=== PATIENT | female | born 1980 ===

== ENCOUNTER 2024-08-14 08:22 | Outpatient (REF) | payer SELFPAY ==
--- NOTE | 2024-08-14 10:24 | MHC.AU.HA3 ---
Hearing Instrument Follow-Up- Binaural Date of Visit: 08/14/24 Right Ear: Roger, Model, Color, Serial Number: Otaviva XCeed 2 UP MEGAN ag S#[id number] Single Pointed Operator Repair Warranty: 05/21/2027 Single Pointed Operator Loss and Damage Warranty: 05/21/2027 [facility] Service Plan: 07/24/25 Battery Size: 675 Earmold/Dome/CShell/SlimTip:microsonic silicone shell rainbow (turqoise, purple, pink) with glitter Dispensed By: [facility] Date of Fittin07/24/24 Left Ear: Roger, Model, Color, Serial Number: Oticon XCeed 2 UP MEGAN ag S#[id number] Single Pointed Operator Repair Warranty: 05/21/2027 Single Pointed Operator Loss and Damage Warranty: 05/21/2027 [facility] Service Plan: 07/24/25 Battery Size: 675 Earmold/Dome/CShell/SlimTip: microsonic silicone shell rainbow (turqoise, purple, pink) with glitter Dispensed By: [facility] Date of Fittin07/24/24 Follow-Up Summary: Jennie reports some issues with the hearing aids. She notes that some sounds feel too soft and some feel too loud. Notes trouble hearing TV. Could not specify particularly bothersome sounds but notes she can feel overwhelmed and fatigued by the hearing aids. Notes getting headaches. Jennie reports inconsistent wear, noting she doesn't really wear them at home. Data logging shows 1 hour average wear. Set to adaptation 2 with gradual increase. Increased noise management settings. Discussed importance of consistent wear to adjust to new amplification. Inquired as to whether Jennie has seen an ENT yet or not as previously discussed at evaluation. She reports she has not. She will request a referral from PCP. Recommendations: Recommendations: An additional follow-up was scheduled to monitor progress. Diagnosis Code(s): Primary Diagnosis: H90.6 Mixed Hearing Loss, Bilateral Signature: Provider: Tavia Carolina, [facility]
== END 2024-08-14 08:23 | disposition home or self-care (01) ==
LOC: HO.HAP 08:22
PROVIDERS: PCP Internal Medicine; Visit Provider Internal Medicine
DX: Z13.89 Encounter for screening for other disorder (principal)

== ENCOUNTER 2024-12-03 09:54 | Outpatient (REF) | payer SELFPAY ==
--- NOTE | 2024-12-03 13:33 | MHC.AU.HA3 ---
Hearing Instrument Follow-Up- Binaural Date of Visit: 12/03/24 Right Ear: Make, Model, Color, Serial Number: Otaviva ROSENeed 2 UP MEGAN ag S#[id number] Bed Spring Maker Repair Warranty: 05/21/2027 Bed Spring Maker Loss and Damage Warranty: 05/21/2027 [facility] Service Plan: 07/24/25 Battery Size: 675 Earmold/Dome/CShell/SlimTip:microsonic silicone shell rainbow (turqoise, purple, pink) with glitter Dispensed By: [facility] Date of Fittin07/24/24 Left Ear: Make, Model, Color, Serial Number: Oticon XCeed 2 UP MEGAN ag S#[id number] Bed Spring Maker Repair Warranty: 05/21/2027 Bed Spring Maker Loss and Damage Warranty: 05/21/2027 [facility] Service Plan: 07/24/25 Battery Size: 675 Earmold/Dome/CShell/SlimTip: microsonic silicone shell rainbow (turqoise, purple, pink) with glitter Dispensed By: [facility] Date of Fittin07/24/24 Follow-Up Summary: Dispensed remake left earmold. Jennie reports it feels comfortable in office. She has been wearing her old earmold on her left aid in the meantime. Reports she has gotten used to the new hearing aids over time and more comfortable with hearing more. Reports she has increased the amount of time she wears them. No adjustments needed today. Recommendations: Recommendations: Hearing instrument follow-up or maintenance as needed. Diagnosis Code(s): Primary Diagnosis: H90.6 Mixed Hearing Loss, Bilateral Signature: Provider: Tavia Carolina, [facility]
== END 2024-12-03 09:55 | disposition home or self-care (01) ==
LOC: HO.HAP 09:54
PROVIDERS: Visit Provider Internal Medicine
DX: Z13.89 Encounter for screening for other disorder (principal)